=== PATIENT | female | born 1975 | race Caucasian/White ===

== ENCOUNTER 2016-10-28 10:38 | Outpatient (CLI) | payer BC ==
[~2016-10-28 10:38] MED LIST: MIRALAX17 G2 ORAL; MULTIVITAMINS1 EAC2 ORAL; NEXIUM40 MG ORAL; PPI PO
--- NOTE | 2016-10-29 08:31 | Diagnostic Imaging Report ---
Indication: SCREEN Technique: Bilateral Craniocaudal and mediolateral oblique views were obtained. Comparison: 07/25/2015, also outside study 07/15/2014 Findings: The breasts are extremely dense, which decreases the sensitivity of mammography. No parenchymal asymmetry nor architectural distortion. No dominant masses nor suspicious clustered microcalcifications. No skin thickening nor nipple retraction. No axillary adenopathy. No significant interim change. Impression: No mammographic evidence of malignancy. Routine annual rescreening recommended. BI-RADS category One-negative. Breast density BI-RADS type D-extremely dense breasts, which limits the sensitivity of mammography
== END 2016-10-28 12:38 | disposition home or self-care (01) ==
LOC: MAMMO 10:38
DX: Z12.31 Encounter for screening mammogram for malignant neoplasm of breast (principal)
CPT/HCPCS: 77067

== ENCOUNTER 2020-06-01 08:17 | Day surgery (SDC) | payer OTHER ==
[~2020-06-01] VITALS: Ht 170.2 cm; Wt 62.6 kg
[2020-06-01] VITALS (7 sets, daily range): BP systolic 112–121; BP diastolic 76–87
[~2020-06-01 08:17] MED LIST changes: +FISH OIL 1,0001 EAC1 ORAL; +FOLIC ACID1 MG ORAL; +LR 1000ml 1,000 ML IVLG SCH
--- NOTE | 2020-06-01 09:47 | Anethesia Preoperative Eval ---
Anesthesia Pre-op PMH/ROS General Date of Evaluation: Jun 01, 2020 Time of Evaluation: 09:47 Anesthesiologist: evangelina ASA Score: ASA 2 Mallampati Score Class I : Soft palate, uvula, fauces, pillars visible Class II: Soft palate, uvula, fauces visible Class III: Soft palate, base of uvula visible Class IV: Only hard plate visible Mallampati Classification: Class II Surgeon: kimberly Diagnosis: dx screening Surgical Procedure: Colonoscopy Anesthesia History: none Family History: no anesthesia problems Allergies: Coded Allergies: No Known Allergies (Unverified , 06/01/20) Medications: see eMAR Patient NPO?: Yes NPO Date: Jun 01, 2020 NPO Time: 00:01 Past Medical History Cardiovascular: Denies: HTN, CAD, [place], valve dz, arrhythmia, other Pulmonary: Denies: asthma, COPD, [place], other Gastrointestinal/Genitourinary: Reports: GERD; Denies: CRI, ESRD, other Neurologic/Psychiatric: Denies: dementia, CVA, depression/anxiety, TIA, other Endocrine: Denies: DM, hypothyroidism, steroids, other HEENT: Denies: cataract (L), cataract (R), glaucoma, [place] (L), [place] (R), other Hematology/Immune: Denies: anemia, DVT, bleeding disorder, other Musculoskeletal/Integumentary: Denies: OA, RA, DJD, DDD, edema, other PSxH Narrative: colonoscopy Anesthesia Pre-op Phys. Exam Physician Exam Last Vital Signs Date Time Temp Pulse Resp B/P (MAP) Pulse Ox O2 Delivery O2 Flow Rate FiO2 06/01/20 08:42 Room Air 06/01/20 08:41 97.2 76 18 112/76 96 Constitutional: NAD Neurologic: CN 2-12 intact Cardiovascular: RRR Respiratory: CTA Gastrointestinal: S/NT/ND Airway Exam Mallampati Classification 2 Mallampati Score: Class II MO: full ROM: full Dentures: no upper, no lower Anesthesia Pre-op A/P Labs Urine Test Test 06/01/20 08:25 Urine HCG, Qualitative Negative (NEGATIVE) Studies Pre-op Studies: EKG - sr Risk Assessment & Plan Assessment: covid neg. preg neg Plan: mac Status Change Before Surgery: No Pre-Antibiotics Drug: none JaniyaJazzmine escamilla [employer] HAND Jun 01, 2020 09:47
--- NOTE | 2020-06-01 09:57 | Pre-Procedure Note/Attestation ---
Pre-Procedure Note/Attestation Complete Prior to Procedure Planned Procedure: not applicable Procedure Narrative: colonoscopy Indications for Procedure Pre-Operative Diagnosis: hematochezia Attestation I attest that I discussed the nature of the procedure; its benefits; risks and complications; and alternatives (and the risks and benefits of such alternatives), prior to the procedure, with the patient (or the patient's legal product representative). I attest that, if there was a reasonable possibility of needing a blood transfusion, the patient (or the patient's legal product representative) was given the [facility] standardized written summary, pursuant to the [place] Blood Safety Act ([place] Health and Safety Code # 1645, as amended). I attest that I re-evaluated the patient just prior to the surgery and that there has been no change in the patient's H&P, except as documented below: Giovany Ga MD Jun 01, 2020 09:57
--- NOTE | 2020-06-01 09:57 | Short Stay Surgery H&P ---
History of Present Illness History of Present Illness Chief Complaint see H&P HPI Claudine Godfrey is a 45 year old female who was admitted on for Hematochezia- Family Hx Of Colon Cancer Patient History Allergies: Coded Allergies: No Known Allergies (Unverified , 06/01/20) Relevant Family History: Colon cancer Medication History Scheduled Folic Acid* (Folic Acid*), 1 MG ORAL DAILY, (Reported) Multivitamins* (Multivitamins*), 1 TAB ORAL DAILY, (Reported) [place]-3 Fatty Acids/Fish Oil* (Fish Oil 1,000 Mg Softgel*), 1 CAP ORAL DAILY, (Reported) Discontinued Medications Polyethylene Glycol 3350* (Miralax*), 17 GM ORAL DAILY, (Reported) Discontinued Reason: Pt stopped taking med [Ppi ], PO DAILY, (Reported) Discontinued Reason: Pt stopped taking med Physical Exam Vital Signs Last Vital Signs Date Time Temp Pulse Resp B/P (MAP) Pulse Ox O2 Delivery O2 Flow Rate FiO2 06/01/20 08:42 Room Air 06/01/20 08:41 97.2 76 18 112/76 96 Labs Laboratory Tests Test 06/01/20 08:25 Urine HCG, Qualitative Negative (NEGATIVE) Plan Attestation Are the patient's medical conditions optimized for surgery? Giovany Ga MD Jun 01, 2020 09:57
[2020-06-01] MEDS ORDERED: LR 1000ml ONE (10:00)
[2020-06-01] MEDS ORDERED: Lidocaine 1% MPF 10mg/ml 5ml ONE (10:00)
--- NOTE | 2020-06-01 10:23 | Endoscopy Procedure Note ---
Endoscopy Procedure Note General Indication for Procedure: brbpr Procedures Performed: colonoscopy Operative Findings/Diagnosis: rhoid Specimen: none Pt Tolerated Procedure Well: Yes Estimated Blood Loss: none Anesthesia Anesthesiologist: MELIZA Anesthesia: MAC Medications Medication Given: see anesthesia record Inserted Devices Implant(s) used?: No GI Core Measures 50 yrs or older w/o bx or poly: Not Applicable 10yrs. F/U recommended: Not Applicable Giovany Ga MD Jun 01, 2020 10:23
--- NOTE | 2020-06-01 10:24 | Brief Operative Note ---
Immediate Post Operative Note Operative Note Pre-op Diagnosis: hematochezia Specimen: none Complications: none Fluids: per anesthesia Implant(s) used?: No Giovany Ga MD Jun 01, 2020 10:24
--- NOTE | 2020-06-01 10:28 | Immediate Post-Op Evaluation ---
Immediate Post-Op Evalulation Immediate Post-Op Evalulation Procedure: colonoscopy Date of Evaluation: Jun 01, 2020 Time of Evaluation: 10:28 IV Fluids: 600 Blood Pressure Systolic: 101 Blood Pressure Diastolic: 60 Pulse Rate: 65 Respiratory Rate: 14 O2 Sat by Pulse Oximetry: 98 Temperature (Fahrenheit): 97.9 Nausea: No Vomiting: No Complications none Patient Status: awake, reacts, patent Hydration Status: adequate Drug: none Jazzmine Wright CRNA Jun 01, 2020 10:28
--- NOTE | 2020-06-01 10:35 | 48 Hour Post Anesthesia Eval ---
Post Anesthesia Evaluation Procedure: colonoscopy Date of Evaluation: Jun 01, 2020 Time of Evaluation: 10:34 Blood Pressure Systolic: 115 0: 65 Pulse Rate: 67 Respiratory Rate: 14 O2 Sat by Pulse Oximetry: 98 Airway: patent Nausea: No Vomiting: No Hydration Status: adequate Cardiopulmonary Status: stable Mental Status/LOC: patient returned to baseline Post-Anesthesia Complications: none Follow-up care needed: N/A Jazzmine Wright CRNA Jun 01, 2020 10:35
--- NOTE | 2020-06-03 18:44 | Procedure Note ---
DATE OF PROCEDURE: 06/01/2020 PROCEDURE: Colonoscopy. SURGEON: Giovany Ga M.D. ANESTHESIA: Please see the separate anesthesiologist notes for details. PRE-ENDOSCOPIC DIAGNOSIS: Hematochezia. POST-ENDOSCOPIC DIAGNOSES: 1. Normal terminal ileum for about 10 cm. 2. Mild internal hemorrhoids. 3. No evidence of polyps or masses. DESCRIPTION OF PROCEDURE: The procedure, its risks, indications, alternatives, and possible complications were explained to the patient and informed consent was obtained. The patient was then sedated in the left lateral decubitus position. A rectal exam was done and this was normal. The colonoscope was introduced into the rectum and advanced to 10 cm into the terminal ileum. The colonoscope was then gradually withdrawn and mucosa examined carefully. No polyps or masses were identified. Retroflexed view of the rectum revealed mild internal hemorrhoids. The colonoscope was removed. The patient was sent to recovery in good condition. COMPLICATIONS: None. RECOMMENDATIONS: 1. High-fiber diet. 2. Follow up with primary care physician. Thank you for asking me to participate in the care of this patient. Giovany Ga M.D. DR: AMIRA JOB#: [id number] CC:
== END 2020-06-01 11:20 | disposition home or self-care (01) ==
LOC: GAS 08:17
DX: K92.1 Melena (principal); K64.8 Other hemorrhoids; Z80.0 Family history of malignant neoplasm of digestive organs; K21.9 Gastro-esophageal reflux disease without esophagitis
CPT/HCPCS: 45378; 81025; 94003; J2704; J7120; U0004; 94150